=== PATIENT | male | born 1980 | race Caucasian/White ===

== ENCOUNTER 2019-02-20 12:40 | Emergency (ER) | payer SELFPAY ==
[2019-02-20 12:55] VITALS: BP 144/93
[2019-02-20] MEDS ORDERED: Ibuprofen TAB* 600 MG PO ONE (13:14)
[2019-02-20 13:58] LABS: Influenza A Molecular NEGATIVE (Negative); Influenza B Molecular NEGATIVE (Negative)
--- NOTE | 2019-02-20 14:16 | UC ---
UC General HPI - HPI Summary HPI Summary: began feeling feverish 2 days ago---1 of his children had similar sx 1 week ago- --today has fever and sore throat---no n/v/d tolerating meals well - History of Current Complaint Chief Complaint: UCRespiratory Stated Complaint: SORETHROAT/FEVER Time Seen by Provider: 02/20/19 13:15 Hx Obtained From: Patient Onset/Duration: Sudden Onset, Lasting Days - 2, Worse Since - today Timing: Constant Onset Severity: Mild Current Severity: Moderate Pain Intensity: 5 Pain Location at: throat Associated Signs & Symptoms: Positive: Fever, Headache - Allergy/Home Medications Allergies/Adverse Reactions: Allergies Allergy/AdvReac Type Severity Reaction Status Date / Time No Known Allergies Allergy Verified 02/20/19 12:56 Home Medications: Home Medications Ibuprofen TAB* [Motrin TAB* 800 MG] 800 mg PO Q6H PRN 02/20/19 [History Confirmed 02/20/19] Multivitamins/Minerals TAB* [Theragran/minerals TAB*] 1 tab PO DAILY 02/20/19 [ History Confirmed 02/20/19] [place]-3 Fatty Acids/Fish Oil [Fish Oil 1,000 mg Softgel] 1 each PO DAILY [History Confirmed 02/20/19] PMH/Surg Hx/FS Hx/Imm Hx Previously Healthy: Yes - Surgical History Surgical History: None - Family History Known Family History: Positive: None - Social History Occupation: Employed Full-time Lives: With Family Alcohol Use: Daily Alcohol Amount: varies Substance Use Type: None Smoking Status (MU): Never Smoked Tobacco Type: Smokeless Tobacco Amount Used/How Often: 1 can every day and a half Length of Time of Smoking/Using Tobacco: 20 years Have You Smoked in the Last Year: No Review of Systems All Other Systems Reviewed And Are Negative: Yes Constitutional: Positive: Fever, Chills, Fatigue Skin: Positive: Negative Eyes: Positive: Negative ENT: Positive: Sore Throat Respiratory: Positive: Negative Cardiovascular: Positive: Negative Gastrointestinal: Positive: Negative Genitourinary: Positive: Negative Motor: Positive: Negative Neurovascular: Positive: Negative Musculoskeletal: Positive: Arthralgia, Myalgia Neurological: Positive: Negative Psychological: Positive: Negative Is Patient Immunocompromised?: No Physical Exam Triage Information Reviewed: Yes Appearance: No Pain Distress, Ill-Appearing - mild, Obese Vital Signs: Initial Vital Signs Temp 103.0 F 02/20/19 12:51 Pulse 111 02/20/19 12:51 Resp 16 02/20/19 12:51 BP 144/93 02/20/19 12:51 Pulse Ox 98 02/20/19 12:51 Vital Signs Reviewed: Yes Eye Exam: Normal Eyes: Positive: Conjunctiva Clear ENT Exam: Normal ENT: Positive: Normal ENT inspection, Hearing grossly normal, Pharynx normal, Pharyngeal erythema, Nasal congestion, TMs normal, Uvula midline. Negative: Tonsillar swelling, Tonsillar exudate, Trismus, Muffled voice, Hoarse voice, Dental tenderness, Sinus tenderness Dental Exam: Normal Neck exam: Normal Neck: Positive: Supple, Nontender, Enlarged Nodes @ - slight right anterior cervical Respiratory Exam: Normal Respiratory: Positive: Chest non-tender, Lungs clear, Normal breath sounds, No respiratory distress, No accessory muscle use Cardiovascular Exam: Normal Cardiovascular: Positive: Pulses Normal, Brisk Capillary Refill, Tachycardia Abdominal Exam: Normal Abdomen Description: Positive: Nontender, No Organomegaly, Soft. Negative: CVA Tenderness (R), CVA Tenderness (L), McBurney's Point Tenderness Bowel Sounds: Positive: Present Musculoskeletal Exam: Normal Musculoskeletal: Positive: Strength Intact, ROM Intact, No Edema Neurological Exam: Normal Neurological: Positive: Alert, Muscle Tone Normal Psychological Exam: Normal Skin Exam: Normal Diagnostics - Laboratory Lab Results: rst & inf A/B (-) Course/Dx - Course Course Of Treatment: increase fluids tylenol ibuprofen follow with pcp if symptoms fail to resolve or worsen - Diagnoses Provider Diagnosis: Viral illness, Fever and chills Discharge - Sign-Out/Discharge Documenting (check all that apply): Patient Departure All imaging exams completed and their final reports reviewed: No Studies - Discharge Plan Condition: Stable Disposition: HOME Patient Education Materials: Fever in Adults (ED), Lymphadenopathy (ED), Viral Syndrome (ED) Referrals: [facility] [Outside] - 1 Week - Billing Disposition and Condition Condition: STABLE Disposition: Home - Attestation Statements Provider Attestation: I was available for consult. This patient was seen by the MENDEZ. The patient was not presented to , seen by or examined by il -Demetrius Suárez MD
== END 2019-02-20 14:20 | disposition home or self-care (01) ==
LOC: UCEAST 12:40
DX: B34.9 Viral infection, unspecified (principal)
CPT/HCPCS: 87651; 99202; A9270-GY; G0463